=== PATIENT | female | born 1990 | race Caucasian/White ===

== ENCOUNTER 2017-10-09 17:30 | Emergency (ER) | END 2017-10-09 22:00 | disposition home or self-care (01) ==

== ENCOUNTER 2018-01-12 17:19 | Emergency (ER) | END 2018-01-12 21:31 | disposition home or self-care (01) ==

== ENCOUNTER 2018-03-17 13:37 | Inpatient (IN) | END 2018-03-21 15:10 | disposition home or self-care (01) | DRG 418 ==